=== PATIENT | female | born 1955 | race Caucasian/White ===

== ENCOUNTER → 2021-04-02 | Outpatient (REF) ==
[2021-04-02 12:38] LABS: ALBUMIN 3.9 g/dL (3.4-4.8); POTASSIUM 3.9 mmol/L (3.5-5.1)
[2021-04-02 12:39] LABS: CALCIUM 9.2 mg/dL (8.3-10.5)
[2021-04-02 12:40] LABS: TOTAL PROTEIN 7.1 g/dL (6.2-8.1)
[2021-04-02 12:42] LABS: TOTAL BILIRUBIN 0.6 mg/dL (0.2-1.2)
== END ==
LOC: LAB 09:09
PROVIDERS: Urology
DX: Z01.89 Encounter for other specified special examinations (principal)